=== PATIENT | male | born 1995 | race Caucasian/White ===

== ENCOUNTER 2017-07-24 22:51 | Emergency (ER) | payer BC ==
[~2017-07-24] VITALS: Ht 182.9 cm; Wt 181.4 kg
[2017-07-24 23:00] VITALS: BP_SYST 148
[2017-07-25 03:20] VITALS: BP_SYST 140
== END 2017-07-25 03:20 | disposition home or self-care (01) ==
LOC: SED 22:51
DX: J06.9 Acute upper respiratory infection, unspecified (principal)
CPT/HCPCS: 99283

== ENCOUNTER 2019-03-06 01:38 | Emergency (ER) | payer BC ==
[~2019-03-06] VITALS: Ht 182.9 cm; Wt 204.1 kg
--- NOTE | 2019-03-06 02:02 | NUR ---
Patient to ER bed 3 to gown for evaluation. Side rails up.
[2019-03-06 02:05] VITALS: BP_SYST 157
--- NOTE | 2019-03-06 02:30 | NUR ---
Dr. Grimm bedside for Pt eval
--- NOTE | 2019-03-06 02:40 | NUR ---
Pt BIB family to ED C/O redness and swelling of his left upper eyelid for the past 2 days. Awoke to this condition. Slight watery discharge from the left eye. Pain worsens when he closes that eye. No other injuries and or complaints noted VSS no s/s of acute distress. Resting on [place] rails up
--- NOTE | 2019-03-06 03:35 | NUR ---
VSS no s/s of acute distress. Resting on gurney rails up
[2019-03-06 04:15] VITALS: BP_SYST 157
--- NOTE | 2019-03-06 04:15 | NUR ---
Patient given written and verbal discharge instructions and verbalizes understanding. ER MD discussed with patient the results and treatment provided. Patient in stable condition. ID arm band removed. Rx of Keflex given. Patient educated on pain management and to follow up with PMD. Pain Scale 0/10 Opportunity for questions provided and answered. Medication side effect fact sheet provided.
== END 2019-03-06 04:15 | disposition home or self-care (01) ==
LOC: SED 01:38
DX: H00.14 Chalazion left upper eyelid (principal)
CPT/HCPCS: 99283

== ENCOUNTER 2021-08-26 00:10 | Emergency (ER) | payer BC ==
[~2021-08-26] VITALS: Ht 182.9 cm; Wt 217.7 kg
[2021-08-26 00:28] VITALS: BP_SYST 130
--- NOTE | 2021-08-26 02:56 | NUR ---
26 YR OLD AOX[employer] AMBULATORY MALE PT WITH COMPLAINT OF LEFT EAR PAIN FOR TWO DAYS WITH HEADACHE 7. PT DENIES ANY TRAUMA OR RECENT SWIMMING, PT NOTED TO HAVE SIGNIFICANT EARWAX AND DRAINAGE UPON ASSESSMENT. PT PLEASANT AND DENIES ANY OTHER HEALTH CONDITION. WILL MONITOR NEEDED
--- NOTE | 2021-08-26 02:58 | NUR ---
MD HORVATH EVALUATING PT AT THIS TIME
[2021-08-26 03:01] VITALS: BP_SYST 126
[2021-08-26] MEDS ORDERED: NEOM10SO7 LEFT EAR (03:08)
--- NOTE | 2021-08-26 03:54 | NUR ---
Patient given written and verbal discharge instructions and verbalizes understanding. ER MD discussed with patient the results ear exam. Patient in stable condition. ID arm band removed. Rx given. Patient educated on pain management and to follow up with primary doctor Opportunity for questions provided and answered. pt discharged with all belongings in stable condition
[2021-08-26] MEDS: HYDROcodone/ACETAMIN 10-325 MG TAB PO ONE (04:26)
== END 2021-08-26 03:54 | disposition home or self-care (01) ==
LOC: SED 00:10
DX: H60.92 Unspecified otitis externa, left ear (principal)
CPT/HCPCS: 82962; 99283